=== PATIENT | female | born 1980 | race African-American/Black ===

== ENCOUNTER 2024-06-03 10:47 | Emergency (ER) | payer OTHER ==
[~2024-06-03] VITALS: Ht 167.6 cm; Wt 104.4 kg
[2024-06-03 10:58] VITALS: BP 117/59; PULSE 81; RESP 16; TEMP 97; O2SAT 100
[2024-06-03 11:22] VITALS: BP 112/84; PULSE 87; RESP 16; TEMP 97; O2SAT 99
== END 2024-06-03 13:26 | disposition home or self-care (01) ==
LOC: MED 10:47
DX: O36.0120 Maternal care for anti-D [Rh] antibodies, second trimester, not applicable or unspecified (principal); Z29.13 Encounter for prophylactic Rho(D) immune globulin; Z3A.28 28 weeks gestation of pregnancy
CPT/HCPCS: 36415; 86886; 86900; 86901; 96372; 99283; J2790